=== PATIENT | female | born 1980 | race Two or more races ===

== ENCOUNTER 2018-06-20 16:44 | Emergency (ER) | payer OTHER ==
[2018-06-20] MEDS ORDERED: KETOROLAC TROMETHAMINE INJ/PF 30 MG/1 ML SDV IV ONE (18:36)
--- NOTE | 2018-06-20 18:38 | ER Document Report ---
ED Medical Screen (RME) - General Chief Complaint: Knee Pain Stated Complaint: KNEE PAIN Time Seen by Provider: 06/20/18 18:25 Mode of Arrival: Ambulatory Information source: Patient Notes: This is a 37-year-old female who was referred to the emergency room for bilateral knee pain. 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 She denies any fever, chills, nausea or vomiting. She denies any dysuria. She denies any tick bites. She does have a identical twin sister who has lupus but she has been tested several times in the past and has been negative in the past. She does have a history of cellulitis which has been recurrent to the left lower extremity and at one point required a PICC line (this is when she lived in [place]). She also notes that she was treated for a localized skin infection to the left lower quadrant with Bactrim and that the lesions have improved significantly. TRAVEL OUTSIDE OF THE [place] IN LAST 30 DAYS: No - Related Data Allergies/Adverse Reactions: cephalexin [From Keflex] Allergy (Verified 06/20/18 16:45) Past Medical History - Social History Chew tobacco use (# tins/day): No Frequency of alcohol use: Occasional Drug Abuse: None Renal/ Medical History: Denies: Hx Peritoneal Dialysis Past Surgical History: Reports: Hx Cholecystectomy, Hx Tubal Ligation Physical Exam - Vital signs Vitals: Temp Pulse Resp BP Pulse Ox 98.8 F 81 16 126/73 H 97 06/20/18 16:48 06/20/18 16:48 06/20/18 16:48 06/20/18 16:48 06/20/18 16:48 Course - Vital Signs Vital signs: Temp Pulse Resp BP Pulse Ox 98.8 F 81 16 126/73 H 97 06/20/18 16:48 06/20/18 16:48 06/20/18 16:48 06/20/18 16:48 06/20/18 16:48
[2018-06-20 19:12] LABS: ABSOLUTE EOSINOPHILS # (AUTO) 0.2 10^3/uL (0.0-0.6); ABSOLUTE MONOCYTES (AUTO) 0.5 10^3/uL (0.1-1.4); ABSOLUTE NEUT (AUTO) 1.2 10^3/uL (1.7-8.2); BASOPHILS % (AUTO) 0.6 % (0-2); EOSINOPHILS % (AUTO) 4.8 % (0-6); HEMATOCRIT 41.8 % (36.0-47.0); HEMOGLOBIN 14.2 g/dL (12.0-15.5); LYMPHOCYTES % (AUTO) 51.4 % (13-45); MEAN CORPUSCULAR HEMOGLOBIN 29.6 pg (27.0-33.4); MEAN CORPUSCULAR HGB CONC 34.1 g/dL (32.0-36.0); MEAN CORPUSCULAR VOLUME 87 fl (80-97); MONOCYTES % (AUTO) 11.7 % (3-13); PLATELET COUNT 299 10^3/uL (150-450); RED CELL DISTRIBUTION WIDTH 13.1 % (11.5-14.0); SEGMENTED NEUTROPHILS % (AUTO) 31.5 % (42-78); TOTAL CELLS COUNTED % (AUTO) 100 %; WHITE BLOOD COUNT 3.9 10^3/uL (4.0-10.5)
--- NOTE | 2018-06-20 19:13 | ER Document Report ---
HPI - HPI Patient complains to provider of: Bilateral knee pain Onset: Yesterday Onset/Duration: Gradual Quality of pain: Achy Pain Level: 5 Context: Patient presents complaining of bilateral knee pain with swelling. Patient states that while working yesterday she did hear a pop in her right knee. Patient denies any injury. Patient denies any fever. Patient states that she does have a twin sister who has lupus although patient has not ever been diagnosed with lupus herself. Associated Symptoms: Other - Bilateral knee pain and swelling. denies: Fever Exacerbated by: Standing, Movement, Walking Relieved by: Denies Similar symptoms previously: No Recently seen / treated by doctor: No - ROS ROS below otherwise negative: Yes Systems Reviewed and Negative: Yes All other systems reviewed and negative - CONSTITUTIONAL Constitutional: DENIES: Fever, Chills - CARDIOVASCULAR Cardiovascular: DENIES: Chest pain - RESPIRATORY Respiratory: DENIES: Trouble Breathing, Coughing - MUSCULOSKELETAL Musculoskeletal: REPORTS: Extremity pain - bilateral knee, Swelling - DERM Skin Color: Normal Skin Problems: None Past Medical History - General Information source: Patient - Social History Smoking Status: Current Some Day Smoker Chew tobacco use (# tins/day): No Smoking Education Provided: Yes Frequency of alcohol use: Occasional Drug Abuse: None 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 IN LAST 30 DAYS: No - HEENT HEENT: Atraumatic, Normocephalic - NECK Neck: Normal Inspection - RESPIRATORY Respiratory: No Respiratory Distress - CARDIOVASCULAR Pulses: Normal: Dorsalis pedis - BACK Back: Normal Inspection - MUSCULOSKELETAL/EXTREMETIES Musculoskeletal/Extremeties: MAEW, Tender - Bilateral knee tenderness, normal skin color and temperature overlying joints. Patient with swelling to bilateral knees, Edema. negative: Eccymosis - NEURO Level of Consciousness: Awake, Alert, Appropriate Motor/Sensory: No Motor Deficit - DERM Integumentary: Warm, Dry, No Rash Course - Vital Signs Vital signs: Temp Pulse Resp BP Pulse Ox 98.8 F 81 16 126/73 H 97 06/20/18 16:48 06/20/18 16:48 06/20/18 16:48 06/20/18 16:48 06/20/18 16:48 - Laboratory Result Diagrams: 06/20/18 18:53 06/20/18 18:53 Laboratory results interpreted by me: 06/20/18 21:04 Labs- Entire Visit 06/20/18 06/20/18 06/20/18 18:53 18:53 18:53 WBC 3.9 L RBC 4.80 Hgb 14.2 Hct 41.8 MCV 87 MCH 29.6 MCHC 34.1 RDW 13.1 Plt Count 299 Seg Neutrophils % 31.5 L Lymphocytes % 51.4 H Monocytes % 11.7 Eosinophils % 4.8 Basophils % 0.6 Absolute Neutrophils 1.2 L Absolute Lymphocytes 2.0 Absolute Monocytes 0.5 Absolute Eosinophils 0.2 Absolute Basophils 0.0 Sodium 141.0 Potassium 4.0 Chloride 104 Carbon Dioxide 26 Anion Gap 11 BUN 12 Creatinine 0.46 L Est GFR ( Amer) > 60 Est GFR (Non-Af Amer) > 60 Glucose 100 Calcium 9.5 Total Bilirubin 0.7 Direct Bilirubin 0.3 Neonat Total Bilirubin Not Reportable Neonat Direct Bilirubin Not Reportable Neonat Indirect Bili Not Reportable AST 81 H ALT 164 H Alkaline Phosphatase 69 Creatine Kinase 36 Total Protein 8.2 Albumin 4.5 Urine Color Urine Appearance Urine pH Ur Specific [place] Urine Protein Urine Glucose (UA) Urine Ketones Urine Blood Urine Nitrite Urine Bilirubin Urine Urobilinogen Ur Leukocyte Esterase Urine WBC (Auto) Urine RBC (Auto) Squamous Epi Cells Auto Urine Mucus (Auto) Urine Ascorbic Acid 06/20/18 19:46 WBC RBC Hgb Hct MCV MCH MCHC RDW Plt Count Seg Neutrophils % Lymphocytes % Monocytes % Eosinophils % Basophils % Absolute Neutrophils Absolute Lymphocytes Absolute Monocytes Absolute Eosinophils Absolute Basophils Sodium Potassium Chloride Carbon Dioxide Anion Gap BUN Creatinine Est GFR ( Amer) Est GFR (Non-Af Amer) Glucose Calcium Total Bilirubin Direct Bilirubin Neonat Total Bilirubin Neonat Direct Bilirubin Neonat Indirect Bili AST ALT Alkaline Phosphatase Creatine Kinase Total Protein Albumin Urine Color YELLOW Urine Appearance CLOUDY Urine pH 5.0 Ur Specific [place] 1.027 Urine Protein NEGATIVE Urine Glucose (UA) NEGATIVE Urine Ketones NEGATIVE Urine Blood NEGATIVE Urine Nitrite NEGATIVE Urine Bilirubin NEGATIVE Urine Urobilinogen NEGATIVE Ur Leukocyte Esterase NEGATIVE Urine WBC (Auto) 0 Urine RBC (Auto) 0 Squamous Epi Cells Auto 3 Urine Mucus (Auto) RARE Urine Ascorbic Acid NEGATIVE Procedures - Immobilization Left Knee Pre-Proc Neuro Vasc Exam: Normal Immobilizer type: Peng wrap Performed by: RN Post-Proc Neuro Vasc Exam: Normal Alignment checked and good: Yes Right Knee Pre-Proc Neuro Vasc Exam: Normal Immobilizer type: Peng wrap Performed by: RN Post-Proc Neuro Vasc Exam: Normal Alignment checked and good: Yes Discharge - Discharge Clinical Impression: Elevated liver function tests Bilateral knee pain Qualifiers: Chronicity: unspecified Qualified Code(s): M25.561 - Pain in right knee Condition: Stable Disposition: HOME, SELF-CARE Instructions: Peng Wrap ([facility]), Arthralgia ([facility]), Use of Crutches ([facility]), Liver Function Abnormality ([facility]), Oral Narcotic Medication ([facility]) Additional Instructions: Return immediately for any new or worsening symptoms Followup with your primary care provider, call tomorrow to make a followup appointment You may need follow-up with a job specification writer for further evaluation of your knee joint pain Prescriptions: Naproxen [Naprosyn 250 Nmg Tablet] 1 tab PO BID #14 tablet Oxycodone HCl [Oxy-Ir 5 mg Tablet] 5 mg PO Q6 PRN #12 tab PRN Reason: Forms: Smoking Cessation Education, Return to Work Referrals: VICENTE CULLEN MD [Primary Care Provider] - Follow up tomorrow
[2018-06-20 19:30] LABS: ALANINE AMINOTRANSFERASE 164 U/L (9-52); ALBUMIN 4.5 g/dL (3.5-5.0); ALKALINE PHOSPHATASE 69 U/L (38-126); ANION GAP 11 (5-19); ASPARTATE AMINO TRANSFERASE 81 U/L (14-36); BILIRUBIN,DIRECT 0.3 mg/dL (0.0-0.4); BILIRUBIN,TOTAL 0.7 mg/dL (0.2-1.3); BLOOD UREA NITROGEN 12 mg/dL (7-20); CALCIUM 9.5 mg/dL (8.4-10.2); CARBON DIOXIDE 26 mmol/L (22-30); CHLORIDE 104 mmol/L (98-107); GLUCOSE 100 mg/dL (75-110); TOTAL PROTEIN 8.2 g/dL (6.3-8.2)
[2018-06-20 20:07] LABS: APPEARANCE,URINE CLOUDY; BILIRUBIN,URINE NEGATIVE (NEGATIVE); COLOR,URINE YELLOW; GLUCOSE, URINE NEGATIVE (NEGATIVE); KETONES,URINE NEGATIVE (NEGATIVE); LEUKOCYTE ESTERASE,URINE NEGATIVE (NEGATIVE); NITRITE,URINE NEGATIVE (NEGATIVE); PROTEIN,URINE NEGATIVE (NEGATIVE); URINE SPECIFIC GRAVITY 1.027; UROBILINOGEN,URINE NEGATIVE mg/dL (<2.0)
[2018-06-20] MEDS ORDERED: MORPHINE SULFATE 10 MG/ML INJ IV ONE (20:08)
[2018-06-20 20:22] LABS: CREATINE KINASE 36 U/L (30-135)
[2018-06-20 23:28] VITALS: BP 118/68
== END 2018-06-20 21:30 | disposition home or self-care (01) ==
LOC: ER 16:44
DX: M25.561 Pain in right knee (principal); M25.562 Pain in left knee; M25.462 Effusion, left knee; M25.461 Effusion, right knee; R79.89 Other specified abnormal findings of blood chemistry; F17.200 Nicotine dependence, unspecified, uncomplicated
CPT/HCPCS: 99283; 96374; 96375; 36415; 82550; 85025; 80053; 81001; J1885; J2270

== ENCOUNTER → 2018-07-08 | Outpatient (CLI) | payer OTHER ==
[2018-07-08 11:52] LABS: ANION GAP 10 (5-19); BLOOD UREA NITROGEN 9 mg/dL (7-20); CALCIUM 9.5 mg/dL (8.4-10.2); CARBON DIOXIDE 27 mmol/L (22-30); CHLORIDE 103 mmol/L (98-107); GLUCOSE 97 mg/dL (75-110); IRON 90.8 ug/dL (37-170); POTASSIUM 4.5 mmol/L (3.6-5.0); SODIUM 140.1 mmol/L (137-145)
== END ==
LOC: OD 10:51
PROVIDERS: ATTEND Internal Medicine Gastroenterology
DX: R94.5 Abnormal results of liver function studies (principal)
CPT/HCPCS: 36415; 80048; 80074; 82390; 82728; 83540; 86038; 86256

== ENCOUNTER 2019-01-18 21:43 | Emergency (ER) | payer OTHER ==
--- NOTE | 2019-01-18 22:23 | RADIOLOGY REPORT (SQ) ---
EXAM DESCRIPTION: XR FOOT 3 OR MORE VIEWS COMPLETED DATE/TME: 01/18/2019 21:53 CLINICAL HISTORY: 38 years, Female, great toe pain COMPARISON: None. NUMBER OF VIEWS: 3 TECHNIQUE: 3 views left foot LIMITATIONS: None. FINDINGS: Negative for acute fracture or dislocation. Mild soft tissue swelling of the great toe. Joint spaces are preserved IMPRESSION: No acute osseous abdomen only. Mild soft tissue swelling copyright 2010 [employer]- All Rights Reserved
--- NOTE | 2019-01-19 00:34 | ER Document Report ---
ED General - General Chief Complaint: Toe Injury Stated Complaint: LEFT BIG TOE INJURY Time Seen by Provider: 01/19/19 00:16 Notes: Patient is a 38-year-old female presents with complaint of injury to her left big toe. She says she is gone the steps and her toenail caught the step and pulled partially off. She denies any other injuries or any other complaints. TRAVEL OUTSIDE OF THE [place] IN LAST 30 DAYS: No - Related Data Allergies/Adverse Reactions: cephalexin [From Keflex] Allergy (Verified 01/18/19 21:47) Past Medical History - Social History Smoking Status: Never Smoker Frequency of alcohol use: None Drug Abuse: None Family History: Reviewed & Not Pertinent Renal/ Medical History: Denies: Hx Peritoneal Dialysis Past Surgical History: Reports: Hx Cholecystectomy, Hx Tubal Ligation Review of Systems - Review of Systems Notes: My Normal Review Basic REVIEW OF SYSTEMS: CONSTITUTIONAL : Denies fever, chills, or sweats. Denies recent illness. MUSCULOSKELETAL: Injury to left big toe NEUROLOGICAL: Denies sensory or motor loss. ALL OTHER SYSTEMS REVIEWED AND NEGATIVE. Physical Exam - Vital signs Vitals: Temp Pulse Resp BP Pulse Ox 97.5 F 66 16 120/80 98 01/19/19 00:55 01/19/19 00:55 01/19/19 00:55 01/19/19 00:55 01/19/19 00:55 - Notes Notes: General Appearance: Well nourished, alert, cooperative, no acute distress, no obvious discomfort. Well-appearing. Vitals: reviewed, See vital signs table. Extremities: Capillary refill distal sensation in the left foot. Patient left big toe was partially avulsed off the toe. The proximal portion of the nail is still intact with the nailbed. The distal portion of the nail was pulled off the nailbed some. There is no active bleeding at this time. No abnormal swelling to the toe. Skin: warm, dry, appropriate color, no rash Neuro: speech clear, oriented x 3, normal affect, responds appropriately to questions. Course - Re-evaluation Re-evalutation: 01/20/19 04:09 Informed patient that we would leave the nail on the toe being that it is still attached on the proximal portion to the nailbed. Informed her that remove the toenail to be less likely that she would have a normal nail in the future on this toe. I encouraged the continuously trim the edge of the toenails or grows out. I showed her how to wrap the toe to help protect it. I encouraged her return to ER if she has any further concerns. Patient agrees with plan and will be discharged home. Dictation of this chart was performed using voice recognition software; the refore, there may be some unintended grammatical errors. - Vital Signs Vital signs: Temp Pulse Resp BP Pulse Ox 97.5 F 66 16 120/80 98 01/19/19 01:13 01/19/19 01:13 01/19/19 01:13 01/19/19 01:01/19/19 01:13 Discharge - Discharge Clinical Impression: Nail avulsion of toe Qualifiers: Encounter type: initial encounter Qualified Code(s): S91.209A - Unspecified open wound of unspecified toe(s) with damage to nail, initial encounter Condition: Good Disposition: HOME, SELF-CARE Additional Instructions: Please slowly trim the nail as it grows out. You can warp the toe with gauze as I did here to help prevent it catching or ripping further. Please return to the ER if you have any further concerns.
[2019-01-19 00:59] VITALS: BP 120/80
== END 2019-01-19 01:10 | disposition home or self-care (01) ==
LOC: ER 21:43
DX: S91.202A Unspecified open wound of left great toe with damage to nail, initial encounter (principal); W22.09XA Striking against other stationary object, initial encounter; Z88.1 Allergy status to other antibiotic agents
CPT/HCPCS: 99283

== ENCOUNTER → 2019-10-11 | Outpatient (CLI) | payer OTHER ==
[2019-10-11 12:04] LABS: IRON 44.6 ug/dL (37-170)
[2019-10-11 12:39] LABS: FERRITIN 68.8 ng/mL (6.2-137.0)
[2019-10-12 08:37] LABS: HEPATITS B SURFACE ANTIGEN Negative (Negative)
[2019-10-12 13:14] LABS: ANTINUCLEAR ANTIBODIES Negative (Negative); HEPATITIS C VIRUS ANTIBODY <0.1 s/co ratio (0.0-0.9)
[2019-10-13 10:13] LABS: MITOCHONDRIAL (M2) ANTIBODY <20.0 Units (0.0-20.0)
== END ==
LOC: LAB 11:08
PROVIDERS: ATTEND Surgery
DX: R94.5 Abnormal results of liver function studies (principal)
CPT/HCPCS: 36415; 80074; 81332; 82390; 82728; 83540; 86038; 86256

== ENCOUNTER → 2019-10-26 | Outpatient (CLI) | payer OTHER ==
--- NOTE | 2019-10-26 13:14 | RADIOLOGY REPORT (SQ) ---
EXAM DESCRIPTION: U/S ABDOMEN LIMITED W/O DOP COMPLETED DATE/TIME: 10/26/2019 8:11 am REASON FOR STUDY: ABN LFTS (R94.5) R94.5 ABNORMAL RESULTS OF LIVER FUNCTION STUDIES COMPARISON: None. TECHNIQUE: Dynamic and static grayscale images acquired of the abdomen and recorded on PACS. Additio nal selected color Doppler and spectral images recorded. LIMITATIONS: None. FINDINGS: PANCREAS: No masses. The tail was poorly seen. LIVER: Increased echogenicity. No masses. LIVER VASCULATURE: Normal directional flow of the main portal vein and hepatic veins. GALLBLADDER: Surgically absent. ULTRASOUND-DETECTED HERNANDEZ'S SIGN: Not applicable. INTRAHEPATIC DUCTS AND COMMON DUCT: CBD and intrahepatic ducts normal caliber. No filling defects. INFERIOR VENA CAVA: Not imaged. AORTA: No aneurysm. RIGHT KIDNEY: Normal size, 12.3 cm. Normal echogenicity. No solid or suspicious masses. No hydroneph rosis. No calcifications. PERITONEAL AND RIGHT PLEURAL SPACE: No ascites or effusions. OTHER: No other significant findings. IMPRESSION: Hepatic steatosis. TECHNICAL DOCUMENTATION: JOB ID: [id number] [employer]- All Rights Reserved Reading location - IP/workstation name: [email or web address]
== END ==
LOC: RAD 07:10
PROVIDERS: ATTEND Internal Medicine Gastroenterology
DX: R94.5 Abnormal results of liver function studies (principal)
CPT/HCPCS: 76705

== ENCOUNTER 2020-03-31 13:35 | Emergency (ER) | payer OTHER ==
[2020-03-31 14:19] VITALS: BP 130/93
[2020-03-31] MEDS ORDERED: DEXAMETHASONE SOD PHOS INJ 10 MG/1 ML VIAL IM ONE (14:52)
[2020-03-31] MEDS ORDERED: METHYLPREDNISOLONE ACETATE INJ 40 MG/1 ML ML IM ONE (14:52)
--- NOTE | 2020-03-31 14:56 | ER Document Report ---
HPI - HPI Patient complains to provider of: cold sore to lip Time Seen by Provider: 03/31/20 14:49 Onset: Just prior to arrival Quality of pain: No pain Pain Level: 3 Associated Symptoms: None Exacerbated by: Denies Relieved by: Denies Similar symptoms previously: No Recently seen / treated by doctor: No - REPRODUCTIVE Reproductive: DENIES: : Past Medical History - General Information source: Patient - Social History Smoking Status: Never Smoker Chew tobacco use (# tins/day): No Frequency of alcohol use: None Drug Abuse: None Lives with: Alone Family History: Reviewed & Not Pertinent Patient has suicidal ideation: No Patient has homicidal ideation: No Renal/ Medical History: Denies: Hx Peritoneal Dialysis Past Surgical History: Reports: Hx Cardiac Surgery, Hx Cholecystectomy, Hx Tubal Ligation Vertical Provider Document - INFECTION CONTROL TRAVEL OUTSIDE OF THE [place] IN LAST 30 DAYS: No - HEENT HEENT: Atraumatic, Conjuctival Injection, Normocephalic, PERRLA Notes: cold sore to left upper lip - NECK Neck: Normal Inspection, Supple - RESPIRATORY Respiratory: Breath Sounds Normal - CARDIOVASCULAR Cardiovascular: Regular Rate, Regular Rhythm - GI/ABDOMEN Gastrointestinal: Abdomen Soft, Abdomen Non-Tender, Abdominal Guarding - BACK Back: Normal Inspection - MUSCULOSKELETAL/EXTREMETIES Musculoskeletal/Extremeties: MAEW - NEURO Level of Consciousness: Awake, Alert, Appropriate - DERM Integumentary: Warm, Dry Course - Vital Signs Vital signs: Temp Pulse Resp BP Pulse Ox 99 F 64 20 130/93 H 98 03/31/20 14:48 03/31/20 14:18 03/31/20 14:18 03/31/20 14:18 03/31/20 14:18 Discharge - Discharge Clinical Impression: Acute herpangina Disposition: HOME, SELF-CARE Instructions: Viral Syndrome ([facility]) Prescriptions: Acyclovir [Zovirax 800 mg Tablet] 800 mg PO 5XD #50 tab
== END 2020-03-31 15:02 | disposition home or self-care (01) ==
LOC: ER 13:35
DX: B08.5 Enteroviral vesicular pharyngitis (principal)
CPT/HCPCS: 99283; 96372; J1030; J1100